=== PATIENT | male | born 1985 | race American Indian/Alaskan Native ===

== ENCOUNTER 2020-10-12 22:56 | Emergency (ER) | payer SELFPAY ==
[2020-10-12 23:05] VITALS: BP 127/81
--- NOTE | 2020-10-12 23:09 | Emergency Department Report ---
ED General Adult HPI - General Chief complaint: Skin Rash Stated complaint: FACIAL RASH/ICHY/BURNING/REDNESS Time Seen by Provider: 10/12/20 23:04 Source: patient Mode of arrival: Ambulatory Limitations: No Limitations - History of Present Illness Initial comments: 35-year-old male presents with complaints of rash to the face x 2 days. Patient states the rash actually started 1 month ago, however he has been using his 's steroid cream and the rash resolved with this until 2 days ago when he stopped using it. He states the rash is itchy and denies any pain, fever/chills/sweats, or drainage. Patient is unsure if he has had contact with anything he is allergic with. He also complains of burning pain to his right eye for the past day, but denies any photophobia, eye drainage, decreased vision, foreign body sensation, or trauma to his eye. He states he is not a contact lens wearer. - Related Data Previous Rx's Medication Instructions Recorded Last Taken Type Cyclobenzaprine [Flexeril] 10 mg PO PRN #15 tablet 07/03/16 Unknown Rx Polymyxin B Sulf/Trimethoprim 1 drop OP Q3H 10 Days #1 bottle 10/12/20 Unknown Rx [Polytrim Eye Drops 12033kbefj/0.1%] Prednisone [predniSONE 10 mg 10 mg PO .TAPER #1 tab.ds.pk 10/12/20 Unknown Rx (6-Day Pack, 21 Tabs)] Triamcinolone 0.1% [Kenalog 0.1% 1 applic TP TID PRN 7 Days #1 tube 10/12/20 Unknown Rx CREAM] Allergies Allergy/AdvReac Type Severity Reaction Status Date / Time No Known Allergies Allergy Verified 07/03/16 00:50 ED Review of Systems ROS: Stated complaint: FACIAL RASH/ICHY/BURNING/REDNESS Other details as noted in HPI Constitutional: denies: chills, fever, malaise Eyes: eye pain. denies: eye discharge, vision change ENT: denies: throat pain Respiratory: denies: cough, shortness of breath Cardiovascular: denies: chest pain Skin: rash, pruritus Neurological: denies: headache, weakness, numbness, paresthesias Hematological/Lymphatic: denies: swollen glands ED Past Medical Hx - Past Medical History Previous Medical History?: No Additional medical history: Joshua's palsey - Surgical History Past Surgical History?: Yes Additional Surgical History: abscess - Social History Smoking Status: Never Smoker Substance Use Type: None - Medications Home Medications: Home Medications Medication Instructions Recorded Confirmed Last Taken Type Cyclobenzaprine [Flexeril] 10 mg PO PRN #15 tablet 07/03/16 Unknown Rx Polymyxin B Sulf/Trimethoprim 1 drop OP Q3H 10 Days #1 bottle 10/12/20 Unknown Rx [Polytrim Eye Drops 02426cksms/0.1%] Prednisone [predniSONE 10 mg 10 mg PO .TAPER #1 tab.ds.pk 10/12/20 Unknown Rx (6-Day Pack, 21 Tabs)] Triamcinolone 0.1% [Kenalog 0.1% 1 applic TP TID PRN 7 Days #1 tube 10/12/20 Unknown Rx CREAM] ED Physical Exam - General Limitations: No Limitations General appearance: alert, in no apparent distress - Head Head exam: Present: atraumatic, normocephalic - Eye Eye exam: Present: PERRL, EOMI, conjunctival injection (Right). Absent: scleral icterus, periorbital swelling - Neck Neck exam: Present: normal inspection, full ROM - Respiratory Respiratory exam: Present: normal lung sounds bilaterally. Absent: respiratory distress - Cardiovascular Cardiovascular Exam: Present: regular rate - Neurological Exam Neurological exam: Present: alert, oriented X3, normal gait - Psychiatric Psychiatric exam: Present: normal affect, normal mood - Skin Skin exam: Present: warm, dry, intact, rash (Mildly erythemic rash diffusely noted to face and butterfly pattern across the cheeks; rash is nontender without drainage) ED Medical Decision Making - Medical Decision Making 35-year-old male presents with complaints of rash to the face x 2 days. Patient states the rash actually started 1 month ago, however he has been using his 's steroid cream and the rash resolved with this until 2 days ago when he stopped using it. He states the rash is itchy and denies any pain, fever/chills/sweats, or drainage. Patient is unsure if he has had contact with anything he is allergic with. He also complains of burning pain to his right eye for the past day, but denies any photophobia, eye drainage, decreased vision, foreign body sensation, or trauma to his eye. He states he is not a contact lens wearer. We will treat rash with steroids in Polytrim for the conjunctivitis of the right eye. Recommend follow-up with primary care provider for further evaluation of rash and possible evaluation for lupus given butterfly pattern. Patient's vitals are normal, he is well-appearing, he is stable for discharge home. Strict return precautions were discussed in detail with patient who verbalizes understanding Critical care attestation.: If time is entered above; I have spent that time in minutes in the direct care of this critically ill patient, excluding procedure time. ED Disposition Clinical Impression: Dermatitis of face, Butterfly rash Disposition: TO HOME OR SELFCARE Is pt being admited?: No Condition: Stable Instructions: Rash, Adult Prescriptions: Triamcinolone 0.1% [Kenalog 0.1% CREAM] 1 applic TP TID PRN 7 Days #1 tube PRN Reason: rash/itching Polymyxin B Sulf/Trimethoprim [Polytrim Eye Drops 42409fqxsx/0.1%] 1 drop OP Q3H 10 Days #1 bottle Prednisone [predniSONE 10 mg (6-Day Pack, 21 Tabs)] 10 mg PO .TAPER #1 tab.ds.pk Referrals: [facility] [place] [Provider Group] - 3-5 Days
== END 2020-10-13 00:11 | disposition home or self-care (01) ==
LOC: ED 22:56
DX: L30.9 Dermatitis, unspecified (principal); R21 Rash and other nonspecific skin eruption; Z79.899 Other long term (current) drug therapy
CPT/HCPCS: 99281